=== PATIENT | male | born 1995 ===

== ENCOUNTER 2017-12-29 01:55 | Emergency (ER) | payer MEDICAID ==
[2017-12-29 02:20] VITALS: BMI 25.4
--- NOTE | 2017-12-29 03:45 | ED PDOC ---
HPI: Chest Pain Time Seen by Provider: 12/29/17 02:35 Chief Complaint (Nursing): Chest Pain Chief Complaint (Provider): Chest Pain History Per: Patient History/Exam Limitations: no limitations Onset/Duration Of Symptoms: Days (x1) Current Symptoms Are (Timing): Gone Now Additional Complaint(s): 22 year old male with hx of anxiety presents to the ED for evaluation of chest pain. Patient states that yesterday evening while at rest, he began having intermittent left sided chest pain and left arm pain. He notes that he took one pill of a [employer] multivitamin yesterday morning but does not believe it to be related. Currently, he denies any pain, but is concerned he has a heart problem. PMD: Rashid Norwood V Past Medical History Reviewed: Historical Data, Nursing Documentation, Vital Signs Vital Signs: Last Vital Signs Temp 98.4 F 12/29/17 03:57 Pulse 72 12/29/17 03:57 Resp 15 12/29/17 03:57 BP 141/91 H 12/29/17 03:57 Pulse Ox 99 12/29/17 03:57 - Medical History PMH: Anxiety - Surgical History Surgical History: No Surg Hx - Family History Family History: States: Other Denies: CAD Other Family History: high cholesterol - Allergies Allergies/Adverse Reactions: Allergies Allergy/AdvReac Type Severity Reaction Status Date / Time No Known Allergies Allergy Verified 12/29/17 03:08 Review of Systems ROS Statement: Except As Marked, All Systems Reviewed And Found Negative Cardiovascular: Positive for: Chest Pain (left sided, gone now) Musculoskeletal: Positive for: Arm Pain (left, gone now) Physical Exam - Reviewed Nursing Documentation Reviewed: Yes Vital Signs Reviewed: Yes - Physical Exam Appears: Positive for: Well, Non-toxic, No Acute Distress Head Exam: Positive for: ATRAUMATIC, NORMOCEPHALIC Skin: Positive for: Normal Color, Warm, Dry Eye Exam: Positive for: Normal appearance ENT: Positive for: Normal ENT Inspection Neck: Positive for: Normal, Painless ROM, Supple Cardiovascular/Chest: Positive for: Regular Rate, Rhythm, Chest Non Tender. Negative for: Murmur Respiratory: Positive for: Normal Breath Sounds. Negative for: Accessory Muscle Use, Respiratory Distress Gastrointestinal/Abdominal: Positive for: Normal Exam, Soft. Negative for: Tenderness Back: Positive for: Normal Inspection Extremity: Positive for: Normal ROM. Negative for: Pedal Edema, Calf Tenderness Neurologic/Psych: Positive for: Alert, Oriented (x3). Negative for: Motor/ Sensory Deficits - ECG ECG: Positive for: Interpreted By Me, Viewed By Me ECG Rhythm: Positive for: Normal QRS, Sinus Rhythm (normal). Negative for: ST/ T Changes O2 Sat by Pulse Oximetry: 100 (RA) Pulse Ox Interpretation: Normal Medical Decision Making Medical Decision Making: A/P 22 year old healthy male presenting to the ED with atypical chest pain --there is not concern for cardiac chest pain --EKG and CXR are both normal --Patient advised to follow up with PMD, or to the ED with new or worsening symptoms. Scribe Attestation: Documented by Yulisa Meyer, acting as a scribe for Deangelo Baires MD. Provider Scribe Attestation: All medical record entries made by the Scribe were at my direction and personally dictated by me. I have reviewed the chart and agree that the record accurately reflects my personal performance of the history, physical exam, medical decision making, and the department course for this patient. I have also personally directed, reviewed, and agree with the discharge instructions and disposition. Disposition - Clinical Impression Clinical Impression: Atypical chest pain - Disposition Referrals: Rashid Norwood MD [Primary Care Provider] - Disposition: Routine/Home Disposition Time: 04:00 Condition: STABLE Instructions: Chest Pain That Is Not Caused by the Heart (DC) Forms: [employer] (Burmese), [facility] ED School/Work Excuse
[2017-12-29 03:50] VITALS: PULSE 72
[2017-12-29 04:04] VITALS: BP 141/91; RESP 15; TEMP 98.4
--- NOTE | 2017-12-29 08:37 | RAD ---
Date of service: 12/29/2017 HISTORY: chest pain COMPARISON: No prior. TECHNIQUE: Chest PA and lateral FINDINGS: LUNGS: No active pulmonary disease. PLEURA: No significant pleural effusion identified. No pneumothorax apparent. CARDIOVASCULAR: Normal. OSSEOUS STRUCTURES: No significant abnormalities. VISUALIZED UPPER ABDOMEN: Normal. OTHER FINDINGS: None. IMPRESSION: No acute cardiopulmonary disease appreciated.
[2017-12-30 05:02] VITALS: O2SAT 100
== END 2017-12-29 04:15 | disposition home or self-care (01) ==
LOC: H.ER 01:55
DX: R07.9 Chest pain, unspecified (principal)

== ENCOUNTER 2018-07-20 01:07 | Emergency (ER) | payer MEDICAID ==
[2018-07-20 01:07] VITALS: BMI 25.4
[2018-07-20 01:20] VITALS: RESP 16; O2SAT 99
[2018-07-20] MEDS ORDERED: DiphenhydrAMINE 50 mg/ml Inj IVP STA (02:34)
[2018-07-20] MEDS ORDERED: Sodium Chloride 0.9% 1,000 ML IV STA (02:34)
[2018-07-20] MEDS ORDERED: DiphenhydrAMINE 50 mg/ml Inj ONE (02:43)
[2018-07-20 03:10] LABS: VENOUS BLOOD GAS BASE EXCESS 4.8 mmol/L (0.0-2.0); VENOUS BLOOD GAS PCO2 66 mmHg (40-60); VENOUS BLOOD GAS PO2 21 mm/Hg (30-55); VENOUS BLOOD PH 7.31 (7.32-7.43)
--- NOTE | 2018-07-20 03:30 | ED PDOC ---
HPI: Abdomen Time Seen by Provider: 07/20/18 02:27 Chief Complaint (Nursing): Abdominal Pain Chief Complaint (Provider): Abdominal Pain History Per: Patient, Family History/Exam Limitations: no limitations Onset/Duration Of Symptoms: Days (x1) Associated Symptoms: Vomiting (1 episode). denies: Fever, Chills Additional Complaint(s): 23 y/o male was brought to the ED by his father for abdominal pain, Patient reports symptoms started around 10:00 in the morning. He reports pain is located in his right lower quadrant and is associated with nausea as well as x1 episode of vomiting prior to arrival. Denies fever or chills. Also states dysuria. Past Medical History Reviewed: Historical Data, Nursing Documentation, Vital Signs Vital Signs: Last Vital Signs Temp 97.8 F 07/20/18 01:18 Pulse 73 07/20/18 01:18 Resp 16 07/20/18 01:18 BP 160/96 H 07/20/18 01:18 Pulse Ox 99 07/20/18 01:18 - Medical History PMH: Anxiety - Family History Family History: Denies: CAD - Home Medications Home Medications: Ambulatory Orders Medication Instructions Recorded Nitrofurantoin Macrocrystals 100 mg PO BID 5 Days cap 07/20/18 [Macrobid] Simethicone [Gas Relief 80] 80 mg PO DAILY #12 ctb 07/20/18 - Allergies Allergies/Adverse Reactions: Allergies Allergy/AdvReac Type Severity Reaction Status Date / Time shellfish derived Allergy URTICARIA Verified 07/20/18 01:21 shrimp Allergy URTICARIA Verified 07/20/18 01:21 Review of Systems ROS Statement: Except As Marked, All Systems Reviewed And Found Negative Constitutional: Negative for: Fever, Chills Gastrointestinal: Positive for: Nausea, Vomiting, Abdominal Pain Physical Exam - Reviewed Nursing Documentation Reviewed: Yes Vital Signs Reviewed: Yes - Physical Exam Appears: Positive for: Well, Non-toxic, No Acute Distress Head Exam: Positive for: ATRAUMATIC, NORMAL INSPECTION, NORMOCEPHALIC Skin: Positive for: Normal Color, Warm, DRY Eye Exam: Positive for: EOMI, Normal appearance, PERRL ENT: Positive for: Normal ENT Inspection Neck: Positive for: Normal, Painless ROM Cardiovascular/Chest: Positive for: Regular Rate, Rhythm. Negative for: Murmur Respiratory: Positive for: Normal Breath Sounds. Negative for: Respiratory Distress Gastrointestinal/Abdominal: Positive for: Tenderness (RLQ) Male Genital Exam: Negative for: scrotum tenderness (R), scrotum tenderness (L), testicular tenderness (R), testicular tenderness (L) Back: Positive for: Normal Inspection Extremity: Positive for: Normal ROM. Negative for: Pedal Edema, Deformity Neurologic/Psych: Positive for: Alert, Oriented. Negative for: Motor/Sensory Deficits - Laboratory Results Result Diagrams: 07/20/18 02:59 07/20/18 02:59 Lab Results: pO2 21 mm/Hg (30-55) L 07/20/18 03:06 VBG pH 7.31 (7.32-7.43) L 07/20/18 03:06 VBG pCO2 66 mmHg (40-60) H* 07/20/18 03:06 VBG HCO3 26.8 mmol/L 07/20/18 03:06 VBG Total CO2 35.2 mmol/L (22-28) H 07/20/18 03:06 VBG O2 Sat (Calc) 37.2 % (40-65) L 07/20/18 03:06 VBG Base Excess 4.8 mmol/L (0.0-2.0) H 07/20/18 03:06 VBG Potassium 3.7 mmol/L (3.6-5.2) 07/20/18 03:06 Sodium 135.0 mmol/L (132-148) 07/20/18 03:06 Chloride 102.0 mmol/L (98-107) 07/20/18 03:06 Glucose 94 mg/dL (75-110) 07/20/18 03:06 Lactate 0.6 mmol/L (0.7-2.1) L 07/20/18 03:06 FiO2 21.0 % 07/20/18 03:06 Crit Value Called To Dr martinez baires 07/20/18 03:06 Crit Value Called By Rodo 07/20/18 03:06 Crit Value Read Back Y 07/20/18 03:06 Blood Gas Notified Time 310 07/20/18 03:06 - ECG O2 Sat by Pulse Oximetry: 99 (RA) Pulse Ox Interpretation: Normal Medical Decision Making Medical Decision Making: Time: 02:34 A/P: well appearing 23 y/o with RLQ pain. Concerned for acute appendicitis vs mesenteric adenitis vs UTI vs. gas vs. constipatoin * Labs * Benadryl 50 mg * IV Fluids * Solumedrol 125 * Toradol 30 mg * Zofran 4 mg 05:27 CT Abdomen Pelvis COMMENTS: The liver is of uniform attenuation without mass or defect. There is no intra or extrahepatic biliary ductal dilatation. The spleen is normal. The gallbladder is within normal limits. The pancreas is of normal contour and attenuation characteristics. There is no evidence of adrenal mass. Both kidneys demonstrate prompt and equal nephrograms. The kidneys are normal in size, shape and configuration. There is no evidence of renal or ureteral mass. No renal or ureteral calculi are identified. There is no hydroureter or hydronephrosis. No evidence for appendicitis. There is no bowel wall thickening. No evidence for small or large bowel obstruction. There is no evidence of abdominal ascites or lymphadenopathy. There is no evidence of intrinsic or extrinsic bladder mass. There is no pelvic ascites or lymphadenopathy. Images of the lung bases show no evidence of pleural or parenchymal mass. There are no pleural effusions. The bony structures are free of lytic or blastic lesions. IMPRESSION: No evidence of acute abdominal or pelvic pathology. Patient is feeling better Given results Tolerating PO, vitals stable Very well appearing Advised patient to followup with Dr. gamboa Scribe Attestation: Documented by Alejandro Loaiza acting as a scribe for Martinez Baires MD. Provider Scribe Attestation: All medical record entries made by the Scribe were at my direction and personall y dictated by me. I have reviewed the chart and agree that the record accurately reflects my personal performance of the history, physical exam, medical decision making, and the department course for this patient. I have also personally directed, reviewed, and agree with the discharge instructions and disposition. Disposition - Clinical Impression Clinical Impression: UTI (urinary tract infection), Abdominal pain Counseled Patient/Family Regarding: Studies Performed, Diagnosis, Need For Fo llowup, Rx Given - Disposition Referrals: Rashid Norwood MD [Family Provider] - Disposition: Routine/Home Disposition Time: 06:30 Condition: GOOD Prescriptions: Nitrofurantoin Macrocrystals [Macrobid] 100 mg PO BID 5 Days cap Simethicone [Gas Relief 80] 80 mg PO DAILY #12 ctb Instructions: Urinary Tract Infections in Adults, Acute Abdomen (Belly Pain), Adult (DC) Forms: [employer] (Haitian)
[2018-07-20 04:21] LABS: BLOOD UREA NITROGEN 19 mg/dl (9-20); CALCIUM 9.6 mg/dL (8.4-10.2); GFR NON-AFRICAN AMERICAN > 60
[2018-07-20 04:23] LABS: URINE BILIRUBIN NEGATIVE (NEGATIVE); URINE BLOOD NEGATIVE (NEGATIVE); URINE CLARITY CLEAR (Clear); URINE COLOR YELLOW (YELLOW); URINE GLUCOSE (UA) NEG (NEGATIVE); URINE LEUKOCYTE ESTERASE TRACE Leu/uL (Negative); URINE PROTEIN NEGATIVE (NEGATIVE); URINE UROBILINOGEN 0.2-1.0 mg/dL (0.2-1.0)
[2018-07-20 04:27] LABS: BASO % 0.5 % (0.0-2.0); EOS # 0.2 K/uL (0.0-0.7); EOS % 2.2 % (0.0-4.0); HEMOGLOBIN 15.4 g/dL (12.0-18.0); LYMPH # 2.8 K/uL (1.0-4.3); LYMPH % 38.3 % (20.0-40.0); MEAN CELL VOLUME 86.7 fl (80.0-94.0); MEAN CORPUSCULAR HEMOGLOBIN 28.5 pg (27.0-31.0); MEAN CORPUSCULAR HGB CONC 32.9 g/dL (33.0-37.0); MEAN PLATELET VOLUME 9.3 fl (7.2-11.7); MONO # 0.7 K/uL (0.0-0.8); MONO % 9.4 % (0.0-10.0); NEUT # 3.7 K/uL (1.8-7.0); NEUT % 49.6 % (50.0-75.0); NRBC % 0.1 % (0.0-0.0); RBC 5.4 Mil/uL (4.40-5.90); RED CELL DISTRIBUTION WIDTH 13.3 % (11.5-14.5); WHITE BLOOD COUNT 7.4 K/uL (4.8-10.8)
[2018-07-20] MEDS ORDERED: Sodium Chloride 0.9% 50 ML IV ONE (04:55)
[2018-07-20] MEDS ORDERED: Iohexol 300 100 ML IJ ONE (04:55)
[2018-07-20 07:05] VITALS: BP 140/88; PULSE 75; TEMP 98
--- NOTE | 2018-07-20 11:59 | CT ---
Date of service: 07/20/2018 PROCEDURE: CT Abdomen and Pelvis with contrast HISTORY: Right lower quadrant pain COMPARISON: None. TECHNIQUE: Contrast dose: Radiation dose: Total exam DLP = 567.97 mGy-cm. This CT exam was performed using one or more of the following dose reduction techniques: Automated exposure control, adjustment of the mA and/or kV according to patient size, and/or use of iterative reconstruction technique. FINDINGS: LOWER THORAX: Heart appears borderline-mildly enlarged.. No significant pericardial effusion. Small hiatal hernia. Lung bases clear without focal consolidation. No effusion or basilar pneumothorax. LIVER: Liver is enlarged measuring nearly 20 cm in CC dimension. Mild diffuse fatty hepatic infiltration. No obvious hepatic mass collection or calcification however note made of a few tiny calcifications along the posterior inferior margin of the right lobe liver the. Portal and splenic veins are opacified. GALLBLADDER AND BILE DUCTS: Gallbladder physiologically distended. No evidence of intraluminal gallbladder calculi. PANCREAS: Pancreas appears grossly unremarkable without masses collections or calcifications. SPLEEN: Unremarkable. ADRENALS: No adrenal lesions. KIDNEYS AND URETERS: Kidneys demonstrate relatively symmetric nephrograms. No evidence of nephrolithiasis or hydronephrosis. VASCULATURE: Unremarkable. No aortic aneurysm. No aortic atherosclerotic calcification or mural plaque present. Evaluation the bowel BOWEL: Evaluation of the bowel is somewhat limited due to the lack of oral contrast material. The stomach is incompletely distended with slight thick-walled appearance. Visualized loops of small bowel exhibit normal contour and caliber. No evidence of acute mechanical small bowel obstruction. Stool and air seen throughout the large bowel with no definitive mural wall thickening. The the APPENDIX: Normal-appearing appendix. PERITONEUM: Unremarkable. No free fluid. No free air. The small fat containing umbilical hernia. LYMPH NODES: Unremarkable. No enlarged lymph nodes. BLADDER: The urinary bladder is incompletely distended which in part account for slight thick-walled appearance. Muscular hypertrophy may contribute. Correlation with urinalysis recommended to exclude cystitis REPRODUCTIVE: Prostate gland measures approximately 4.5 cm in transverse dimension.. BONES: No acute fracture.. Minor chronic appearing Schmorl's nodes seen along few lower thoracic disc space levels. OTHER FINDINGS: None. IMPRESSION: No acute intra abdominal pathology. Hepatomegaly with fatty infiltration. Few tiny hepatic calcifications seen along the posterior inferior margin margin of the right lobe liver
== END 2018-07-20 06:50 | disposition home or self-care (01) ==
LOC: H.ER 01:07
DX: N39.0 Urinary tract infection, site not specified (principal); R10.9 Unspecified abdominal pain
CPT/HCPCS: 74177; 80048; 81003; 82803; 85025; 87040; 96374; 96375; 99283; J1200; J1885; J2405; J2930; J7030; Q9967